=== PATIENT | female | born 1980 | race Caucasian/White ===

== ENCOUNTER 2016-07-20 07:32 | Inpatient (IN) | payer MEDICAID ==
[~2016-07-20 07:32] MED LIST: DOCO200C PO
--- NOTE | 2016-07-20 08:15 | PD ---
HPI Chief Complaint Contractions, abdominal pain Date Seen: Jul 20, 2016 Time Seen: 08:00 Travel History International Travel<30 Days: No Contact w/Intl Traveler<30Days: No Known Affected Area: No History of Present Illness HPI 36-year-old will be 300 002 at 40 weeks and 3 days of gestation, EDC , patient presents to OB ED with complaints of contractions and lower abdominal pain and pelvic pressure, she denies leakage of fluids, vaginal bleeding. Patient reports presence of movement. care is with the office of care for women, course is unremarkable. Para: 2 : 3 Miscarriage: 0 : 0 History Past Medical History Narrative Medical Obesity Obstetric History Obstetric History Spontaneous vaginal delivery 2 Past Surgical History Narrative Surgical Status post laparoscopic cholecystectomy Family History Narrative Family History Negative Family History: Negative Social History Alcohol Use: No Tobacco Use: No Substance Abuse: No Allergies-Medications (Allergen,Severity, Reaction): Coded Allergies: No Known Allergies (Verified , 07/09/16) Home Meds Reported Medications Docosahexaenoic Acid ( Dha)200 Mg Cap Po #30 05/12/16 Review of Systems Except as stated in HPI: all other systems reviewed are Neg Genitourinary: Other (contractions) Musculoskeletal: Cramping Physical Exam Narrative GENERAL: Well-nourished, well-developed patient. SKIN: Warm and dry. HEAD: Normocephalic and atraumatic. EYES: No scleral icterus. No injection or drainage. ENT: No nasal drainage noted. Mucous membranes pink. Airway patent. NECK: Supple, trachea midline. No JVD. CARDIOVASCULAR: Regular rate and rhythm without murmurs, gallops, or rubs. RESPIRATORY: Breath sounds equal bilaterally. No accessory muscle use. BREASTS: Bilateral exam showed no masses , no retractions, no nipple discharge. ABDOMEN/GI: Abdomen soft, gravid, non-tender, bowel sounds present, no rebound, no guarding Gravid to 40 weeks size Fundal Height: 40 cm GENITOURINARY: External Genitalia: intact and normal in appearance BUS glands: Normal Cervix: 3 cm, 70%, -3, posterior Dilatation: 3 cm Effacement: 70% Station: -3 Presentation: Cephalic Membranes: Intact Uterine Contractions: Occasional FHT's: Category: one Baseline: 130s Reactive: Yes Variability: Moderate Decels: None EXTREMITIES: No cyanosis or edema. BACK: Nontender without obvious deformity. No CVA tenderness. NEUROLOGICAL: Awake and alert. Motor and sensory grossly within normal limits. Five out of 5 muscle strength in all muscle groups. Normal speech. Data Data Vital Signs Reviewed: Yes Orders Vital Signs (Adult) .ON ADMISSION (07/20/16 08:05) ^ Labor Status (07/20/16 08:05) Urinalysis - C+S If Indicated (07/20/16 08:05) ^ Non Stress Test (07/20/16 08:05) ^ Hydration (07/20/16 08:05) MDM Medical Record Reviewed: Yes Diagnosis Diagnosis: Primary Impression: 40 weeks gestation of Patient Instructions: Early Labor Signs (ED), General Instructions, Having Your Baby: The Labor Process (GEN) Additional Instructions: Patient to walk around and it is any cervical change she will then be admitted, if she remains the same patient will have to be discharged, Return to labor and delivery if increase cramping, contractions, leakage of fluids, vaginal bleeding or decreased movement. Drink plenty of fluids. Monitor kick counts. Keep office appointment as scheduled. Departure Forms: Tests/Procedures Anastacio Velazco MD Jul 20, 2016 08:15
[2016-07-20] MEDS ORDERED: LACTATED RINGER'S 1000 ML INJ 1,000 ML IV PRN ×2 (09:46→09:47)
[2016-07-20] MEDS ORDERED: LACTATED RINGER'S 1000 ML INJ 1,000 ML IV SCH (09:47)
--- NOTE | 2016-07-20 09:48 | HHI.HP ---
History & Physical H&P HPI Chief Complaint Contractions, abdominal pain Date Seen: Jul 20, 2016 Time Seen: 08:00 Travel History International Travel<30 Days: No Contact w/Intl Traveler<30Days: No Known Affected Area: No History of Present Illness HPI 36-year-old will be 300 002 at 40 weeks and 3 days of gestation, EDC , patient presents to OB ED with complaints of contractions and lower abdominal pain and pelvic pressure, she denies leakage of fluids, vaginal bleeding. Patient reports presence of movement. care is with the office of care for women, course is unremarkable. Para: 2 : 3 Miscarriage: 0 : 0 History (Limited) History Past Medical History Narrative Medical Obesity Obstetric History Obstetric History Spontaneous vaginal delivery 2 Past Surgical History Narrative Surgical Status post laparoscopic cholecystectomy Family History Narrative Family History Negative Family History: Negative Social History Alcohol Use: No Tobacco Use: No Substance Abuse: No Allergies-Medications Allergies-Medications (Allergen,Severity, Reaction): Coded Allergies: No Known Allergies (Verified , 07/09/16) Home Meds Reported Medications Docosahexaenoic Acid ( Dha)200 Mg Cap Po #30 05/12/16 ROS Review of Systems Except as stated in HPI: all other systems reviewed are Neg Genitourinary: Other (contractions) Musculoskeletal: Cramping Physical Exam Physical Exam Narrative GENERAL: Well-nourished, well-developed patient. SKIN: Warm and dry. HEAD: Normocephalic and atraumatic. EYES: No scleral icterus. No injection or drainage. ENT: No nasal drainage noted. Mucous membranes pink. Airway patent. NECK: Supple, trachea midline. No JVD. CARDIOVASCULAR: Regular rate and rhythm without murmurs, gallops, or rubs. RESPIRATORY: Breath sounds equal bilaterally. No accessory muscle use. BREASTS: Bilateral exam showed no masses , no retractions, no nipple discharge. ABDOMEN/GI: Abdomen soft, gravid, non-tender, bowel sounds present, no rebound, no guarding Gravid to 40 weeks size Fundal Height: 40 cm GENITOURINARY: External Genitalia: intact and normal in appearance BUS glands: Normal Cervix: 3 cm, 70%, -3, posterior Dilatation: 3 cm Effacement: 70% Station: -3 Presentation: Cephalic Membranes: Intact Uterine Contractions: Occasional FHT's: Category: one Baseline: 130s Reactive: Yes Variability: Moderate Decels: None EXTREMITIES: No cyanosis or edema. BACK: Nontender without obvious deformity. No CVA tenderness. NEUROLOGICAL: Awake and alert. Motor and sensory grossly within normal limits. Five out of 5 muscle strength in all muscle groups. Normal speech. Data Data Data Vital Signs Reviewed: Yes Orders Vital Signs (Adult) .ON ADMISSION (07/20/16 08:05) ^ Labor Status (07/20/16 08:05) Urinalysis - C+S If Indicated (07/20/16 08:05) ^ Non Stress Test (07/20/16 08:05) ^ Hydration (07/20/16 08:05) MDM MDM Medical Record Reviewed: Yes Diagnosis Diagnosis: Primary Impression: 40 weeks gestation of - Making cervical change - Will admit to labor and delivery (Sven Mcnulty MD R2) . Attending Note Patient seen and evaluated with the resident under direct supervision, I agree with the assessment and plan. (Anastacio Velazco MD) Sven Mcnulty MD R2 Jul 20, 2016 09:48 Anastacio Velazco MD Jul 25, 2016 20:47
[2016-07-20] MEDS ORDERED: OXYTOCIN 30 UNITS-500ML PREMIX 500 ML IV ONE ×2 (10:00)
[2016-07-20] MEDS ORDERED: SODIUM CHLORID 0.9% 500 ML INJ 500 ML IV PRN ×2 (10:00)
[2016-07-20] MEDS ORDERED: LIDOCAINE HCL 1% 50 ML VIAL INFIL PRN ×2 (10:00)
[2016-07-20] MEDS ORDERED: MINERAL OIL 10 ML VIAL TOPICAL PRN ×2 (10:00)
[2016-07-20] MEDS ORDERED: ONDANSETRON HCL 4 MG/2 ML VIAL IV PRN (10:00)
[2016-07-20] MEDS ORDERED: LIDOCAINE HCL 1% 50 ML VIAL I-DERMAL PRN ×2 (10:00)
[2016-07-20] MEDS ORDERED: CITRIC ACID-SODIUM CITRATE LIQ 30 ML UDC PO SCH ×2 (10:00)
[2016-07-20] MEDS ORDERED: SODIUM CHLOR 0.9% 1000 ML INJ 1,000 ML IV PRN ×2 (10:06→10:07)
[2016-07-20] MEDS ORDERED: PENICILLIN G POTASSIUM INJ 5,000,000 UNITS in SODIUM CHLORIDE 0.9% INJ 100 ML IV ONE (10:15)
[2016-07-20] MEDS: LACTATED RINGER'S 1000 ML INJ 1,000 ML IV SCH ×2 (10:22→15:16)
[2016-07-20 10:46] LABS: AUTOMATED NEUTROPHIL # 4.8 TH/MM3 (1.8-7.7); BASOPHIL % 0.3 % (0.0-2.0); EOSINOPHIL # 0.1 TH/MM3 (0-0.4); HEMATOCRIT 34.8 % (35.0-46.0); HEMO FLAGS DIFF FINAL; LYMPH % 23.9 % (9.0-44.0); LYMPHOCYTE # 1.7 TH/MM3 (1.0-4.8); MEAN CORPUSCULAR HEMOGLOBIN 31.1 PG (27.0-34.0); MEAN CORPUSCULAR HGB CONC 34.2 % (32.0-36.0); MONO % 5.4 % (0.0-8.0); NEUT % 69.4 % (16.0-70.0); PLATELET COUNT 266 TH/MM3 (150-450); RED BLOOD COUNT 3.82 MIL/MM3 (4.00-5.30); RED CELL DISTRIBUTION WIDTH 13.8 % (11.6-17.2); WHITE BLOOD COUNT 6.9 TH/MM3 (4.0-11.0)
[2016-07-20 11:49] LABS: BACTERIA, URINE MOD /hpf; BLOOD, URINE SMALL (NEG); GLUCOSE,URINE NEG (NEG); HYALINE CAST, URINE 1 /lpf (RARE); KETONE, URINE NEG (NEG); MUCUS URINE FEW /lpf (OCC); NITRITE,URINE NEG (NEG); PH, URINE 6.5 (5.0-8.5); SQUAMOUS EPITHELIAL CELL URINE 9 /hpf (0-5); TRANSITIONAL EPI CELLS, URINE 1 /hpf; URINE COLOR YELLOW (YELLW/STRAW)
[2016-07-20 11:51] LABS: COMMENT (UR) CULTURE INDICATED; CULTURE IF INDICATED CULTURE INDICATED
[2016-07-20] MEDS ORDERED: PENICILLIN G POTASSIUM INJ 2,500,000 UNITS in SODIUM CHLORIDE 0.9% INJ 100 ML IV SCH (14:15)
--- NOTE | 2016-07-20 14:34 | PD.LABORPN ---
Subjective Subjective Patient resting in bed. Cervical check dilated at 5cm, 70%, -2. AROM performed with clear fluid. Objective Objective Pelvic Exam: Dilatation: 5 Effacement: 70 Station: -2 Presentation: vertex Membranes: AROM Uterine Contractions: q5-7 minutes FHT's: Category: 1 Baseline: 125 Reactive: yes Variability: moderate Decels: none Assessment/Plan Problem List: (1) 40 weeks gestation of Assessment and Plan 36 y/o at 39/4 in labor - AROM, clear fluid - Continue FHT - Monitor vitals - Plan for vaginal delivery Sudheer Rodriguez MD R1 Jul 20, 2016 14:34
[2016-07-20] MEDS ORDERED: fentaNYL 2MCG-BUPIV 0.125% INJ 100 ML ONE (15:17)
[2016-07-20] MEDS ORDERED: ePHEDrine/NS 50 MG/5 ML SYR ONE (15:37)
--- NOTE | 2016-07-20 17:38 | PD.OB.DELI ---
Delivery Date: Jul 20, 2016 Anesthesia: Epidural Episiotomy: None Vaginal Delivery: Normal, Spontaneous Presentation: Occiput anterior Nuchal Cord: None : Male One Minute : 8 Five Minute : 9 Care: Suctioned, Spontaneous crying, Responded to stimulation Placenta: Spontaneous delivery, Intact, 3 vessel cord Laceration: No lacerations Sudheer Rodriguez MD R1 Jul 20, 2016 17:38
[2016-07-20] MEDS ORDERED: fentaNYL 2MCG-BUPIV 0.125% INJ 100 ML EPIDURAL SCH (18:00)
[2016-07-20] MEDS ORDERED: NO SYSTEM NARCOTICS XX PRN (18:00)
[2016-07-20] MEDS ORDERED: ePHEDrine/NS 50 MG/5 ML SYR IV PRN (18:00)
[2016-07-20] MEDS ORDERED: DO NOT ADMINISTER ANTICOAGULANTS XX PRN (18:00)
[2016-07-21] MEDS: IBUPROFEN 600 MG TAB PO PRN ×2 (04:18→11:31)
[2016-07-21] MEDS: ACETAMINOPHEN 325 MG TAB PO PRN ×3 (04:18→16:10)
--- NOTE | 2016-07-21 07:06 | HHI.OB ---
Subjective Remarks 36 year old post- day 1 after vaginal delivery. No acute events overnight. Lochia is decreasing. Encouraging exclusive . Discussing control options. Pain well controlled with ibuprofen. No chest pain, shortness of breath, or calf tenderness. Objective Objective Remarks GENERAL: Well-nourished, well-developed patient. CARDIOVASCULAR: Regular rate and rhythm without murmurs, gallops, or rubs. RESPIRATORY: Breath sounds equal bilaterally. No accessory muscle use. ABDOMEN/GI: Abdomen soft, non-tender. Fundus: Firm, non-tender at umbilicus. GENITOURINARY: Light to moderate bleeding. EXTREMITIES: No cyanosis or edema, non-tender, without signs of DVT. Medications and IVs Current Medications Medications (Trade) Dose Ordered Sig/Dottie Route Start Time Stop Time Status Last Admin Lactated Ringer's 1,000 ml @ 125 mls/hr Q8H IV 07/20/16 09:46 07/20/16 15:16 Lactated Ringer's 1,000 ml @ 3,000 mls/hr Q20M PRN IV 07/20/16 09:46 Sodium Chloride 500 ml @ 1,000 mls/hr ONCE PRN IV 07/20/16 10:00 07/21/16 09:59 (NS 1000 ml Inj) 1,000 ml @ 100 mls/hr Q10H PRN IV 07/20/16 10:06 (Zofran Inj) 4 mg Q6H PRN IV 07/20/16 10:00 (fentaNYL INJ) 50 mcg Q1H PRN IV PUSH 07/20/16 10:00 07/20/16 13:32 (fentaNYL INJ) 100 mcg Q1H PRN IV PUSH 07/20/16 10:00 Mineral Oil 10 ml 10 ml UNSCH PRN TOPICAL 07/20/16 10:00 Sodium Chloride 1,000 ml @ 100 mls/hr Q10H PRN IV 07/20/16 10:07 (Pfizerpen-G Inj/ NS Inj) 100 ml @ 200 mls/hr Q4H IV 07/20/16 14:15 07/20/16 14:31 Miscellaneous Information No systemic narcotics to be given except... UNSCH PRN XX 07/20/16 18:00 07/21/16 17:59 Miscellaneous Information DO NOT ADMINISTER ANY ANTICOAGUL... UNSCH PRN XX 07/20/16 18:00 07/21/16 17:59 (fentaNYL 2MCG-BUPIV 0.125% INJ) 100 ml @ 0 mls/hr TITRATE EPIDURAL 07/20/16 18:00 (ePHEDrine/NS 50 MG/5 ML SYR) 10 mg UNSCH PRN IV 07/20/16 18:00 07/21/16 17:59 (Flu (Quadrivalent) Vaccine Inj) 0.5 ml ONCE ONCE IM 07/22/16 10:00 07/22/16 10:01 (Tylenol) 650 mg Q4H PRN PO 07/21/16 04:00 07/21/16 04:18 (Motrin) 600 mg Q6H PRN PO 07/21/16 04:00 07/21/16 04:18 Assessment/Plan Assessment and Plan 36 year old post- day 1 after vaginal delivery. - Ibuprofen for pain control. - Monitor lochia. - Discuss control options. - Encourage . - Pelvic rest. - Follow up with OB within 6 weeks. - Anticipate discharge tomorrow. Discuss with OB attending Sven Mcnulty MD R2 Jul 21, 2016 07:06
--- NOTE | 2016-07-21 09:02 | HHI.OB ---
Subjective Post Day: 1 Remarks This patient is day 1 from vaginal delivery without complication. She is a doing well baby is doing well. Mother is ambulating tolerating diet has minimal bleeding. She was seen with the family medicine residents and agree with her plan and assessment Objective Objective Remarks GENERAL: Well-nourished, well-developed patient. CARDIOVASCULAR: Regular rate and rhythm without murmurs, gallops, or rubs. RESPIRATORY: Breath sounds equal bilaterally. No accessory muscle use. ABDOMEN/GI: Abdomen soft, non-tender. Fundus: Firm, non-tender at umbilicus. GENITOURINARY: Light to moderate bleeding. EXTREMITIES: No cyanosis or edema, non-tender, without signs of DVT. Medications and IVs Current Medications Medications (Trade) Dose Ordered Sig/Dottie Route Start Time Stop Time Status Last Admin Lactated Ringer's 1,000 ml @ 125 mls/hr Q8H IV 07/20/16 09:46 07/20/16 15:16 Lactated Ringer's 1,000 ml @ 3,000 mls/hr Q20M PRN IV 07/20/16 09:46 Sodium Chloride 500 ml @ 1,000 mls/hr ONCE PRN IV 07/20/16 10:00 07/21/16 09:59 (NS 1000 ml Inj) 1,000 ml @ 100 mls/hr Q10H PRN IV 07/20/16 10:06 (Zofran Inj) 4 mg Q6H PRN IV 07/20/16 10:00 (fentaNYL INJ) 50 mcg Q1H PRN IV PUSH 07/20/16 10:00 07/20/16 13:32 (fentaNYL INJ) 100 mcg Q1H PRN IV PUSH 07/20/16 10:00 Mineral Oil 10 ml 10 ml UNSCH PRN TOPICAL 07/20/16 10:00 Sodium Chloride 1,000 ml @ 100 mls/hr Q10H PRN IV 07/20/16 10:07 (Pfizerpen-G Inj/ NS Inj) 100 ml @ 200 mls/hr Q4H IV 07/20/16 14:15 07/20/16 14:31 Miscellaneous Information No systemic narcotics to be given except... UNSCH PRN XX 07/20/16 18:00 07/21/16 17:59 Miscellaneous Information DO NOT ADMINISTER ANY ANTICOAGUL... UNSCH PRN XX 07/20/16 18:00 07/21/16 17:59 (fentaNYL 2MCG-BUPIV 0.125% INJ) 100 ml @ 0 mls/hr TITRATE EPIDURAL 07/20/16 18:00 (ePHEDrine/NS 50 MG/5 ML SYR) 10 mg UNSCH PRN IV 07/20/16 18:00 07/21/16 17:59 (Flu (Quadrivalent) Vaccine Inj) 0.5 ml ONCE ONCE IM 07/22/16 10:00 07/22/16 10:01 (Tylenol) 650 mg Q4H PRN PO 07/21/16 04:00 07/21/16 08:30 (Motrin) 600 mg Q6H PRN PO 07/21/16 04:00 07/21/16 04:18 Assessment/Plan Problem List: (1) 40 weeks gestation of Assessment and Plan 36 year old post- day 1 after vaginal delivery. - Ibuprofen for pain control. - Monitor lochia. - Discuss control options. - Encourage . - Pelvic rest. - Follow up with OB within 6 weeks. - Anticipate discharge tomorrow. Discuss with OB attending Chance Lopez II, MD Jul 21, 2016 09:01
[2016-07-21] MEDS ORDERED: DIPHTH/TETANUS/ACEL PERTUSSIS (BOOSTER) 0.5 ML VIAL/PFS IM ONE (12:30)
[2016-07-22] MEDS ORDERED: IBUP-232 PO (06:58)
--- NOTE | 2016-07-22 06:59 | HHI.DCPOC ---
Discharge Care Plan Diagnosis: (1) Vaginal delivery Goals to Promote Your Health * To prevent worsening of your condition and complications * To maintain your health at the optimal level Directions to Meet Your Goals Take your medications as prescribed Follow your dietary instruction Follow activity as directed Keep your appointments as scheduled Take your immunizations and boosters as scheduled If your symptoms worsen call your PCP, if no PCP go to Urgent Care Center or Emergency Room Smoking is Dangerous to Your Health. Avoid second hand smoke Call the 24-hour hour crisis hotline for domestic abuse at Sven Mcnulty MD R2 Jul 22, 2016 06:59
--- NOTE | 2016-07-22 07:15 | HHI.OB ---
Subjective Remarks 36 year old post- day 2 after vaginal delivery. No acute events overnight. Lochia is minimal. Encouraging exclusive . Discussing control options, patient undecided at this time. Pain well controlled with ibuprofen. No chest pain, shortness of breath, or calf tenderness. Wants to go home today. Objective Objective Remarks GENERAL: Well-nourished, well-developed patient. CARDIOVASCULAR: Regular rate and rhythm without murmurs, gallops, or rubs. RESPIRATORY: Breath sounds equal bilaterally. No accessory muscle use. ABDOMEN/GI: Abdomen soft, non-tender. Fundus: Firm, non-tender at umbilicus. GENITOURINARY: Light to moderate bleeding. EXTREMITIES: No cyanosis or edema, non-tender, without signs of DVT. Medications and IVs Current Medications Medications (Trade) Dose Ordered Sig/Dottie Route Start Time Stop Time Status Last Admin Lactated Ringer's 1,000 ml @ 125 mls/hr Q8H IV 07/20/16 09:46 07/20/16 15:16 Lactated Ringer's 1,000 ml @ 3,000 mls/hr Q20M PRN IV 07/20/16 09:46 (NS 1000 ml Inj) 1,000 ml @ 100 mls/hr Q10H PRN IV 07/20/16 10:06 (Zofran Inj) 4 mg Q6H PRN IV 07/20/16 10:00 (fentaNYL INJ) 50 mcg Q1H PRN IV PUSH 07/20/16 10:00 07/20/16 13:32 (fentaNYL INJ) 100 mcg Q1H PRN IV PUSH 07/20/16 10:00 Mineral Oil 10 ml 10 ml UNSCH PRN TOPICAL 07/20/16 10:00 Sodium Chloride 1,000 ml @ 100 mls/hr Q10H PRN IV 07/20/16 10:07 Penicillin G Potassium [id number] units/Sodium Chloride 100 ml @ 200 mls/hr Q4H IV 07/20/16 14:15 07/20/16 14:31 (fentaNYL 2MCG-BUPIV 0.125% INJ) 100 ml @ 0 mls/hr TITRATE EPIDURAL 07/20/16 18:00 (Flu (Quadrivalent) Vaccine Inj) 0.5 ml ONCE ONCE IM 07/22/16 10:00 07/22/16 10:01 07/22/16 06:12 (Tylenol) 650 mg Q4H PRN PO 07/21/16 04:00 07/21/16 16:10 (Motrin) 600 mg Q6H PRN PO 07/21/16 04:00 07/21/16 11:31 Assessment/Plan Problem List: (1) 40 weeks gestation of Assessment and Plan 36 year old post- day 1 after vaginal delivery. - Ibuprofen for pain control. - Monitor lochia. - Discuss control options. - Encourage . - Pelvic rest. - Follow up with OB within 6 weeks. - Anticipate discharge today. Discuss with OB attending Sven Mcnulty MD R2 Jul 22, 2016 07:15
[2016-07-22] MEDS ORDERED: INFLUENZA VIRUS VACCINE (QUADRIVALENT) 0.5 ML SYR IM ONE (10:00)
== END 2016-07-22 13:00 | disposition home or self-care (01) | DRG 775 ==
LOC: HOBED 07:32 → H2EA 09:46 → H1EA 20:53
PROVIDERS: ADMIT Obstetrics & Gynecology; ATTEND Obstetrics & Gynecology
PROC: 10E0XZZ Delivery of Products of Conception, External Approach (ICD-10-PCS; principal; 2016-07-20)
PROC: 10907ZC Drainage of Amniotic Fluid, Therapeutic from Products of Conception, Via Natural or Artificial Opening (ICD-10-PCS; 2016-07-20)
DX: O48.0 Post-term pregnancy (principal); O99.214 Obesity complicating childbirth; O09.523 Supervision of elderly multigravida, third trimester; Z23 Encounter for immunization; Z37.0 Single live birth; Z3A.40 40 weeks gestation of pregnancy
CPT/HCPCS: 59025; 81001; 85025; 86850; 86900; 86901; 87086; 90686; 90715; 99285; J2540; J3010; J7120; Q2038